=== PATIENT | female | born 1995 | race Caucasian/White ===

== ENCOUNTER 2017-11-24 05:36 | Day surgery (SDC) | payer OTHER ==
[2017-11-24] MEDS ORDERED: Acetaminophen 500 MG Tab PO ONE (05:44)
[2017-11-24] MEDS ORDERED: Celecoxib 200 MG Cap PO ONE (05:44)
[2017-11-24] MEDS ORDERED: Dextrose 5%-Lactated Ringers 1,000 ML IV SCH (05:45)
[2017-11-24] MEDS ORDERED: Bupivacaine 0.5%/EPINEPHrine 1:200,000 50 ML MDV ONE (06:44)
[2017-11-24] MEDS ORDERED: Scopolamine 1.5 MG Transdermal Patch TOP SCH (07:00)
[2017-11-24] MEDS ORDERED: Midazolam 1 MG/ML 2 ML SDV ONE (07:05)
[2017-11-24] MEDS ORDERED: Dexamethasone 4 MG/ML SDV ONE (07:05)
[2017-11-24] MEDS ORDERED: fentaNYL 250 MCG/5 ML SDV ONE (07:05)
[2017-11-24] MEDS ORDERED: Ondansetron 4 MG/2 ML SDV ONE (07:05)
[2017-11-24] MEDS ORDERED: Rocuronium 50 MG/5 ML Vial ONE (07:05)
[2017-11-24] MEDS ORDERED: Neostigmine Methylsulfate 1 MG/ML 5 ML Syringe ONE (07:05)
[2017-11-24] MEDS ORDERED: Propofol 200 MG/20 ML SDV ONE (07:05)
[2017-11-24] MEDS: Ampicillin/Sulbactam Na 3 GM in Sodium Chloride 0.9% 100 ML IV ONE ×2 (07:42→10:13)
[2017-11-24] MEDS ORDERED: Ketamine 500 MG/5 ML MDV IV SCH (08:00)
[2017-11-24] MEDS ORDERED: Ondansetron 4 MG/2 ML SDV IVPUSH PRN (09:30)
[2017-11-24] MEDS ORDERED: Metoclopramide 10 MG/2 ML SDV IVPUSH PRN (09:31)
[2017-11-24] MEDS ORDERED: Lidocaine 2% Viscous Solution 15 ML Cup PO PRN (09:44)
[2017-11-24] MEDS ORDERED: Acetaminophen/HYDROcodone 108-2.5 MG/5 ML Soln 15 ML UD Cup PO ONE (12:30)
--- NOTE | 2017-11-30 12:49 | OR ---
DATE OF PROCEDURE: 11/24/2017 PREOPERATIVE DIAGNOSIS: Recurrent tonsillitis. POSTOPERATIVE DIAGNOSIS: Recurrent tonsillitis. PROCEDURE: Tonsillectomy (22173). ANESTHESIA: General. TYPIST: Rayo Weldon MS-3. INDICATION FOR PROCEDURE: This is a 22-year-old presenting with multiple recurrent streptococcal tonsillitis. After preoperative evaluation and discussion, she wished to proceed with tonsillectomy. At this time started her spring break and must be done in anticipation of her having a satisfactory amount of time to recover before going to school. Potential risks of procedure were reviewed with the patient including bleeding, infection that would likely change her vocal quality to some extent were gone over and the patient wishes to proceed. DETAILS OF PROCEDURE: The patient was taken to the operating room and placed in a supine position. After general endotracheal anesthesia was induced, the neck was extended somewhat and the tonsillar retractor placed. Both tonsils were fairly large, roughly size of a ping- pong ball and at this point had a small amount of purulent material extruded from them during the course of tonsillectomy but in general there was not an acute infection beyond. The right-sided tonsillectomy accomplished by means of electrocautery and the right tonsil removed intact. Similarly the left tonsil was then removed using electrocautery. The primary tonsillar artery on each side did tend to bleed somewhat but was extensively cauterized. Upon completion of both sides, the edges of the mucosa at the site of the tonsillectomy were injected with 0.5% Marcaine with epinephrine and at that point good hemostasis was confirmed and the patient was taken to the recovery room in satisfactory condition. There were no overt complications. Ivan Roldan MD /[id number]
== END 2017-11-24 13:27 | disposition home or self-care (01) ==
LOC: JP.SDS 05:36
PROVIDERS: ATTEND Surgery
DX: J03.01 Acute recurrent streptococcal tonsillitis (principal); J35.01 Chronic tonsillitis
CPT/HCPCS: 36415; 42826; 80048; 81025; 85027; 88304; A9270; J0295; J1100; J2250; J2405; J2704; J2765; J3010; J7030; J7042